=== PATIENT | male | born 1955 | race Two or more races ===

== ENCOUNTER 2024-03-20 18:36 | Inpatient (IN) | payer OTHER ==
[~2024-03-20] VITALS: Ht 172.7 cm; Wt 88.7 kg
[2024-03-20 19:33] LABS: Basophils # (auto) 0.1 10 ^3/uL (0-0.2); Basophils % (auto) 0.8 % (0.0-2.0); Eosinophils # (auto) 0.2 10 ^3/uL (0-0.8); Eosinophils % (auto) 2.4 % (0.0-7.0); Hematocrit 44.1 % (41.0-53.0); Hemoglobin 15.4 g/dL (13.5-17.5); Lymphocytes # (auto) 1.6 10 ^3/uL (0.4-5.4); Lymphocytes % (auto) 22.4 % (10.0-50.0); Mean Corpuscular Hemoglobin 31.5 pg (28.0-32.0); Mean Corpuscular Hgb Conc. 35.1 g/dL (32.0-36.0); Mean Corpuscular Volume 89.9 fL (80.0-100.0); Monocytes # (auto) 0.4 10 ^3/uL (0-1.3); Monocytes % (auto) 6.2 % (0.0-12.0); Neutrophils # (auto) 4.9 10 ^3/uL (1.6-8.6); Neutrophils % (auto) 68.2 % (37.0-80.0); Nucleated Red Blood Cells % 0.1 %; Red Cell Distribution Width 12.8 % (11.8-14.3); White Blood Cell 7.3 10^3/uL (4.4-10.8)
[2024-03-20 19:51] LABS: Urine Bacteria None Seen /hpf (None Seen)
[2024-03-20 19:51] LABS: Alanine Aminotransferase 44 U/L (7-40); Albumin 4.6 g/dL (3.2-4.8); Alkaline Phosphatase 102 U/L (46-116); Anion Gap 11 (5-15); Aspartate Aminotransferase 29 U/L (13-40); BUN/Creatinine Ratio 14.9 (10.0-20.0); Bilirubin, Total 0.6 mg/dL (0.2-1.0); Blood Urea Nitrogen 17 mg/dL (9-23); Calcium 10.2 mg/dL (8.7-10.4); Carbon Dioxide 20 mmol/L (20-30); Chloride 102 mmol/L (98-107); Potassium 4.1 mmol/L (3.5-5.1); Sodium 133 mmol/L (136-145); Total Protein 7.1 g/dL (5.7-8.2)
[2024-03-20 19:52] LABS: Glucose 488 mg/dL (74-106)
[2024-03-20 20:01] LABS: Urine Blood Negative /uL (Negative); Urine Clarity Clear (Clear); Urine Color Light-Yellow (Yellow); Urine Protein, UAD Negative (Negative); Urine Urobilinogen Normal (Negative); Urine WBC <1 /hpf (0 - 3); Urine pH 5.5 (5.0-9.0)
[2024-03-20] MEDS: InsuLIN REG 1unit/0.01ml Soln (100units/ml) XX ONE (21:00)
[2024-03-20] MEDS ORDERED: hydrALAZINE HCL 20 MG/ML VL IV PRN (21:15)
[2024-03-20] MEDS ORDERED: DEXTROSE (50%) 50ML SYRG IV PRN (21:15)
[2024-03-20] MEDS ORDERED: HYDROcodone-ACET 5/325MG TAB PO PRN (21:15)
[2024-03-20] MEDS ORDERED: ONDANSETRON HCL 4 MG/2 ML VIAL IV PRN (21:15)
[2024-03-20] MEDS ORDERED: ACETAMINOPHEN 325 MG TAB PO PRN (21:15)
[2024-03-20] MEDS ORDERED: DOCUSATE SOD 100 MG CAP PO PRN (21:15)
[2024-03-20] MEDS ORDERED: HYDROmorphone HCL 2 MG/ML VL/or syr IV PRN (21:15)
[2024-03-20] MEDS: SODIUM CHLOR 0.9% PF (SALINE LOCK) 10ML VIAL/SYR IV SCH (21:57)
[2024-03-20] MEDS: INSULIN LANTUS (GLARGINE) 1 /0.01ml (100units/ml) SC SCH (21:57)
[2024-03-20] MEDS: ACCU-CHEK COMFORT CURVE STRIP VI SCH (21:58)
[2024-03-20] MEDS: InsuLIN REG 1unit/0.01ml Soln (100units/ml) SC SCH (21:59)
[2024-03-20 22:12] VITALS: PULSE 94; RESP 18; O2SAT 96
[2024-03-21] VITALS (8 sets, daily range): BP systolic 96–153; BP diastolic 61–92; PULSE 65–87; RESP 16–21; TEMP 97.4–97.9; O2SAT 95–99
[2024-03-21] MEDS ORDERED: BENA10TA90 PO (03:34)
[2024-03-21] MEDS: InsuLIN REG 1unit/0.01ml Soln (100units/ml) SC SCH (06:32)
[2024-03-21] MEDS: FAMOTIDINE 20 MG TAB PO SCH (10:20)
[2024-03-21] MEDS: ENOXAPARIN SOD 40 MG/0.4 ML SYRINGE SC SCH (10:21)
[2024-03-21] MEDS ORDERED: LISINOPRIL 5 MG TAB PO SCH (13:00)
[2024-03-21 14:37] LABS: Basophils # (auto) 0 10 ^3/uL (0-0.2); Basophils % (auto) 0.7 % (0.0-2.0); Eosinophils # (auto) 0.1 10 ^3/uL (0-0.8); Eosinophils % (auto) 2.4 % (0.0-7.0); Hematocrit 41.2 % (41.0-53.0); Hemoglobin 14.3 g/dL (13.5-17.5); Lymphocytes # (auto) 1.3 10 ^3/uL (0.4-5.4); Lymphocytes % (auto) 22.4 % (10.0-50.0); Mean Corpuscular Hemoglobin 31.2 pg (28.0-32.0); Mean Corpuscular Hgb Conc. 34.7 g/dL (32.0-36.0); Monocytes # (auto) 0.3 10 ^3/uL (0-1.3); Monocytes % (auto) 4.9 % (0.0-12.0); Neutrophils # (auto) 4.2 10 ^3/uL (1.6-8.6); Neutrophils % (auto) 69.6 % (37.0-80.0); Red Blood Cells 4.58 10^6/uL (4.5-5.90)
[2024-03-21 15:03] LABS: Alanine Aminotransferase 39 U/L (7-40); Alkaline Phosphatase 83 U/L (46-116); Anion Gap 6 (5-15); Aspartate Aminotransferase 21 U/L (13-40); BUN/Creatinine Ratio 15.2 (10.0-20.0); Blood Urea Nitrogen 15 mg/dL (9-23); Calcium 9.2 mg/dL (8.7-10.4); Carbon Dioxide 25 mmol/L (20-30); Chloride 106 mmol/L (98-107); Potassium 3.6 mmol/L (3.5-5.1); Sodium 137 mmol/L (136-145)
[2024-03-21 15:04] LABS: Bilirubin, Total 0.8 mg/dL (0.2-1.0); Glucose 307 mg/dL (74-106); Total Protein 6.2 g/dL (5.7-8.2)
[2024-03-21] MEDS: INSULIN LANTUS (GLARGINE) 1 /0.01ml (100units/ml) SC ONE (17:00)
[2024-03-22] VITALS (7 sets, daily range): BP systolic 120–148; BP diastolic 71–96; PULSE 69–88; RESP 14–18; TEMP 36.6; O2SAT 94–100
[2024-03-22 06:24] LABS: Basophils # (auto) 0.1 10 ^3/uL (0-0.2); Eosinophils # (auto) 0.2 10 ^3/uL (0-0.8); Eosinophils % (auto) 2.5 % (0.0-7.0); Hematocrit 41.3 % (41.0-53.0); Hemoglobin 14.6 g/dL (13.5-17.5); Lymphocytes # (auto) 1.6 10 ^3/uL (0.4-5.4); Lymphocytes % (auto) 24.2 % (10.0-50.0); Mean Corpuscular Hemoglobin 31.9 pg (28.0-32.0); Mean Corpuscular Hgb Conc. 35.3 g/dL (32.0-36.0); Mean Corpuscular Volume 90.4 fL (80.0-100.0); Monocytes # (auto) 0.4 10 ^3/uL (0-1.3); Monocytes % (auto) 6.3 % (0.0-12.0); Neutrophils # (auto) 4.3 10 ^3/uL (1.6-8.6); Red Blood Cells 4.57 10^6/uL (4.5-5.90); Red Cell Distribution Width 13.2 % (11.8-14.3); White Blood Cell 6.5 10^3/uL (4.4-10.8)
[2024-03-22] MEDS: InsuLIN REG 1unit/0.01ml Soln (100units/ml) SC SCH (06:30)
[2024-03-22 06:31] LABS: Calcium 9.2 mg/dL (8.7-10.4); Chloride 107 mmol/L (98-107); Potassium 4.4 mmol/L (3.5-5.1); Sodium 139 mmol/L (136-145)
[2024-03-22 06:37] LABS: Blood Urea Nitrogen 12 mg/dL (9-23); Glucose 230 mg/dL (74-106)
[2024-03-22 07:38] LABS: Anion Gap 6 (5-15); Carbon Dioxide 26 mmol/L (20-30)
[2024-03-22] MEDS ORDERED: BENAZEPRIL HCL 10 MG TAB PO SCH (10:00)
[2024-03-22] MEDS ORDERED: PATIENTS OWN MEDICATION PO SCH (10:00)
[2024-03-22] MEDS: BENAZEPRIL HCL 10 MG TAB PO SCH (11:33)
[2024-03-22] MEDS: LACTULOSE 20Gm/30ML SOLN PO ONE ×2 (12:11→12:12)
[2024-03-22] MEDS: INSULIN LANTUS (GLARGINE) 1 /0.01ml (100units/ml) SC ONE ×2 (12:11→12:12)
[2024-03-22] MEDS ORDERED: INSU100I49 SC (16:41)
[2024-03-22] MEDS ORDERED: INSLANTI SC (16:41)
[2024-03-22] MEDS ORDERED: INSULIN LANTUS (GLARGINE) 1 /0.01ml (100units/ml) SC SCH ×2 (22:00)
[2024-03-22] MEDS ORDERED: InsuLIN REG 1unit/0.01ml Soln (100units/ml) SC SCH (22:00)
[2024-03-23] MEDS ORDERED: [UNRECOGNIZED DRUG - CODE] XX (10:11)
[2024-03-23] MEDS ORDERED: INSU100I2 SC (10:11)
[2024-03-23] MEDS ORDERED: ALCO1PAD13 XX (10:11)
[2024-03-23] MEDS ORDERED: INSU100I64 SC (10:11)
[2024-03-24] MEDS ORDERED: INSLANTI SC (15:23)
== END 2024-03-22 18:20 | disposition home or self-care (01) | DRG 639 ==
LOC: ER 18:36 → OVERFLOW 21:10 → EAST 03-21 02:50
PROVIDERS: ADMIT Internal Medicine; ATTEND Internal Medicine
DX: E11.65 Type 2 diabetes mellitus with hyperglycemia (principal); Z79.899 Other long term (current) drug therapy; I16.0 Hypertensive urgency; I10 Essential (primary) hypertension; D69.6 Thrombocytopenia, unspecified; Z79.4 Long term (current) use of insulin
CPT/HCPCS: 36415; 80048; 80053; 81001; 82962; 83036; 83605; 84443; 85025; G0378; J1815